=== PATIENT | female | born 1965 | race African-American/Black ===

== ENCOUNTER 2016-11-26 16:00 | Inpatient (IN) ==
[~2016-11-26 16:00] MED LIST: ASPIRIN PO STA; NITROGLYCERIN SL PRN
[2016-11-26] MEDS ORDERED: NITROGLYCERIN TOP ONE (16:02)
--- NOTE | 2016-11-26 16:15 | EKG Report ---
Test Performed on : 11/26/2016 3:54:58 PM Test Reason : CHEST PAIN Blood Pressure : / mmHG Vent. Rate : 082 BPM Atrial Rate : 082 BPM P-R Int : 146 ms QRS Dur : 070 ms QT Int : 366 ms P-R-T Axes : 053 -16 052 degrees QTc Int : 427 ms Normal sinus rhythm. Normal ECG When compared with ECG of 13-APR-2013 14:36, No significant change was found Unconfirmed Result
[2016-11-26] MEDS ORDERED: MORPHINE IV ONE (16:18)
[2016-11-26 16:19] LABS: MANUAL DIFF NEEDED? NO
[2016-11-26 16:22] LABS: BASO% 0.2 % (0.0-0.8); EOS# 0.09 X1000 (0.0-0.7); EOS% 1.8 % (0.0-10.0); HEMATOCRIT 39.1 % (37.0-47.0); LYMPH# 2.17 X1000 (1.2-3.4); LYMPH% 44.1 % (20.5-51.1); MCH 27.1 PG (27-31); MCHC 33.2 g/dL (33-37); MCV 81.6 FL (81-99); MONO# 0.31 X1000 (0.11-0.59); MONO% 6.3 % (1.7-9.3); MPV 10.8 FL (7.4-10.4); NEUT% 47.6 % (42.2-75.2); PLT 284 X1000 (130-400); RBC 4.79 XMIL (4.2-5.4)
--- NOTE | 2016-11-26 16:29 | Diag Imaging Result Doc PS360 ---
EXAM: CHEST-PORTABLE HISTORY: cp TECHNIQUE: AP portable at 1625 COMMENT: There is a granuloma in the left upper lobe. There is no evidence of acute cardiac or pulmonary disease. Compared to the previous examination of 04/13/2013 there has been no significant change in the appearance of the chest. IMPRESSION: Stable chest. Electronically signed by Luis Carlos Mohan 11/26/2016 4:27 PM
[2016-11-26 16:33] LABS: INR 0.96; PTT 28.3 Seconds (22.0-36.0)
[2016-11-26 16:55] LABS: ALBUMIN 3.9 g/dL (3.5-5.0); CALCIUM 9.1 mg/dL (8.8-10.2); MAGNESIUM 1.7 mg/dL (1.5-2.7); TOTAL BILIRUBIN 0.4 mg/dL (0.20-1.00); TOTAL PROTEIN 6.6 g/dL (6.3-8.3)
[2016-11-26] MEDS ORDERED: NS 1,000 ML IV ONE (16:57)
[2016-11-26 17:56] LABS: CK-MB 5.64 ng/mL (0.0-5.0)
--- NOTE | 2016-11-26 18:39 | Diag Imaging Result Doc PS360 ---
EXAM: CT ANGIOGRM/PULMONARY ARTERIES HISTORY: CP with elevated D dimer TECHNIQUE: CT chest with intravenous contrast. Arteriogram protocol with MIP images. Dose reduction technique. COMPARISON: None. FINDINGS: Suboptimal opacification of the pulmonary arteries. No filling defects identified. Normal thoracic aorta. No pleural effusions. Heart is mildly enlarged. There are small mediastinal nodes with several calcified left hilar nodes. No consolidation. No bronchiectasis. There is a calcified granuloma in the left upper lobe. The vasculature is distended. IMPRESSION: 1.No pulmonary emboli 2.Mild cardiomegaly with pulmonary edema 3.There is evidence of a prior granulomatous infection Electronically signed by Emiliano Gillette 11/26/2016 6:36 PM
[2016-11-26 19:24] LABS: CK INDEX 2.9 (0.0-2.5); CK-MB 5.17 ng/mL (0.0-5.0)
[2016-11-26] MEDS ORDERED: LIPITOR PO SCH (22:43)
[2016-11-26] MEDS ORDERED: TYLENOL PO PRN ×2 (22:43)
[2016-11-26] MEDS: LOVENOX SUBQ SCH (22:57)
[2016-11-26] MEDS: NITROGLYCERIN TOP SCH (22:58)
[2016-11-26 23:51] LABS: HEMOGLOBIN A1C 6.4 % (4.8-6.0)
[2016-11-27] MEDS ORDERED: PNEUMOVAX 23 IM ONE (02:06)
[2016-11-27] MEDS: NITROGLYCERIN TOP SCH (05:53)
[2016-11-27] MEDS: HUMALOG SUBQ SCH ×4 (06:00→21:42)
[2016-11-27] MEDS: PRILOSEC PO SCH (06:00)
[2016-11-27 06:13] LABS: AGAP 11; ALBUMIN 3.4 g/dL (3.5-5.0); ALKALINE PHOSPHATASE 190 U/L (32-104); BUN 13 mg/dL (8-22); CALCIUM 8.7 mg/dL (8.8-10.2); CHLORIDE 103 mmol/L (98-107); COSMO 281; POTASSIUM 3.5 mmol/L (3.5-5.1); SODIUM 141 mmol/L (136-145); TCO2 27 mmol/L (25-35); TOTAL BILIRUBIN 1.21 mg/dL (0.20-1.00); TOTAL PROTEIN 6.1 g/dL (6.3-8.3)
[2016-11-27 06:30] LABS: GOT 2874 U/L (10-30); GPT 1208 U/L (10-36)
--- NOTE | 2016-11-27 07:08 | EKG Report ---
Test Performed on : 11/27/2016 06:32:11 AM Test Reason : CP Blood Pressure : / mmHG Vent. Rate : 076 BPM Atrial Rate : 076 BPM P-R Int : 168 ms QRS Dur : 086 ms QT Int : 400 ms P-R-T Axes : 064 -13 063 degrees QTc Int : 450 ms Normal sinus rhythm. Normal ECG When compared with ECG of 26-NOV-2016 15:54, (Unconfirmed) No significant change was found Confirmed by Shirlene LARSEN, Jaden Amor ([id number]) on 11/28/2016 7:50:20 AM
[2016-11-27] MEDS ORDERED: PRINIVIL PO SCH (09:00)
[2016-11-27] MEDS ORDERED: ASPIRIN PO SCH (09:00)
[2016-11-27] MEDS ORDERED: NON-FORMULARY MED (Omeprazole [Prilosec] 40 MG) PO SCH (09:00)
[2016-11-27 10:31] LABS: INR 0.96
[2016-11-27 10:39] LABS: AMYLASE 45 U/L (20-200); LIPASE 37 U/L (13-60)
--- NOTE | 2016-11-27 10:42 | Diag Imaging Result Doc PS360 ---
EXAM: US ABDOMEN-COMPLETE HISTORY: abd pain, chest pain, increased LFT TECHNIQUE: Abdominal ultrasound COMMENT: The visualized portion of the pancreas is within normal limits. The aorta and inferior vena cava are normal in appearance where there are visible. Liver is unremarkable. There is no evidence of biliary dilatation, the common bile duct measuring 4 mm. There is antegrade flow in the portal vein. The gallbladder is clear and nontender. The kidneys are without evidence of hydronephrosis or mass. The spleen is not enlarged. There are no abnormal fluid collections. IMPRESSION: No evidence of acute disease. Electronically signed by Luis Carlos Mohan 11/27/2016 10:40 AM
[2016-11-27 10:52] LABS: ALBUMIN 3.8 g/dL (3.5-5.0); DIRECT BILIRUBIN 1.2 mg/dL (0.00-0.20); TOTAL BILIRUBIN 1.48 mg/dL (0.20-1.00); TOTAL PROTEIN 6.8 g/dL (6.3-8.3)
--- NOTE | 2016-11-27 11:31 | Diag Imaging Result Doc PS360 ---
EXAM: CT ABD/PELVIS W/PO AND IV CON INDICATION: chest pain, abd pain, increased LFTs TECHNIQUE: Dose reduction protocol was used. COMPARISON: None. FINDINGS: The liver, gallbladder, spleen, pancreas, and adrenal glands are unremarkable. The kidneys and urinary bladder appear normal. The uterus is enlarged, heterogeneous, and very nodular. This probably represents uterine leiomyomas. There is a right adnexal mass that measures up to 4.8 x 3.4 cm. This may represent a pedunculated uterine fibroid, but it is difficult to determine if it is attached to the uterus. Follow-up pelvic ultrasound is recommended. It is difficult to distinguish this from the right ovary on the study. There are a few scattered colonic diverticula but there is no evidence of diverticulitis. There is no evidence of bowel obstruction. The GI tract is essentially unremarkable, otherwise. IMPRESSION: 1.Enlarged, nodular, and heterogeneous uterus that probably represents multiple uterine leiomyomas. 2.Right adnexal region mass that may represent a pedunculated uterine leiomyoma but it is indeterminate. A follow-up with pelvic ultrasound is recommended. 3.Otherwise, no definite acute pathology. Electronically signed by Konstantin Dawson 11/27/2016 11:28 AM
[2016-11-27 12:28] LABS: ACETAMINOPHEN 2.9 ug/mL (10-30)
[2016-11-27] MEDS: ZOFRAN IV PRN (16:40)
[2016-11-27] MEDS: ULTRAM PO PRN (18:42)
[2016-11-27] MEDS: LOVENOX SUBQ SCH (21:44)
--- NOTE | 2016-11-28 00:01 | ECHO REPORT ---
ORDER DATE: 11/26/2016 MEASUREMENTS: Left ventricular end-diastolic diameter 4.2, end systolic diameter 2.5, septal thickness 1.2, posterior wall thickness 1.2, aortic root 3.1, left atrium 3.5. SUMMARY: 1. Fair quality study. 2. Aortic valve is trileaflet and opens normally on 2-dimensional images. Mitral, tricuspid, and pulmonic valves are without structural abnormality with trace tricuspid regurgitation. Aortic root is normal size. 3. Normal left ventricular chamber size with mild concentric left hypertrophy is demonstrated. Estimated left ejection fraction appears to be at least 70%. No regional wall motion abnormalities are evident. Left atrium, right atrium, right ventricle normal size with normal right ventricular systolic function. 4. No pericardial effusion. 5. Appearance of inferior vena cava suggests normal central venous pressure. CONCLUSIONS: 1. No significant valvular abnormality. 2. Mild concentric left hypertrophy with estimated left ejection fraction at least 70%. cc: MD Omari Marte MD
[2016-11-28 06:12] LABS: AGAP 9; ALBUMIN 3.7 g/dL (3.5-5.0); ALKALINE PHOSPHATASE 256 U/L (32-104); BUN 7 mg/dL (8-22); CALCIUM 8.9 mg/dL (8.8-10.2); CHLORIDE 104 mmol/L (98-107); COSMO 279; GOT 677 U/L (10-30); MAGNESIUM 1.9 mg/dL (1.5-2.7); POTASSIUM 3.9 mmol/L (3.5-5.1); SODIUM 141 mmol/L (136-145); TCO2 28 mmol/L (25-35); TOTAL BILIRUBIN 0.92 mg/dL (0.20-1.00); TOTAL PROTEIN 6.8 g/dL (6.3-8.3)
[2016-11-28] MEDS: HUMALOG SUBQ SCH ×4 (06:22→20:47)
[2016-11-28 06:26] LABS: GPT 846 U/L (10-36)
[2016-11-28 06:36] LABS: FREE T4 1.02 ng/dL (0.93-1.70)
[2016-11-28] MEDS: PRILOSEC PO SCH (07:33)
[2016-11-28] MEDS: ULTRAM PO PRN ×2 (07:42→20:46)
[2016-11-28] MEDS: ZOFRAN IV PRN (12:12)
[2016-11-28 12:26] LABS: HEPATITIS PROFILE ACUTE SEE COMMENTS
[2016-11-28] MEDS ORDERED: SODIUM CHLORIDE 0.9% INJ PRN (13:29)
[2016-11-28] MEDS ORDERED: PHENERGAN IV PRN (13:29)
[2016-11-28] MEDS: LOVENOX SUBQ SCH (20:11)
[2016-11-29] MEDS: HUMALOG SUBQ SCH ×4 (06:03→21:05)
[2016-11-29] MEDS: PRILOSEC PO SCH (06:04)
--- NOTE | 2016-11-29 09:46 | Diag Imaging Result Doc PS360 ---
HIDA SCAN W/ EJECTION FRACTION - 11/28/2016 INDICATION: vomiting COMPARISON: 11/27/2016 FINDINGS: 3.1 millicuries of Choletec was administered. There is normal uptake and clearance by the liver. There is normal excretion into the gallbladder and small bowel. A fatty meal was given. The gallbladder ejection fraction is 87%. IMPRESSION: Negative exam. An abnormally low ejection fraction (less than 35%) can be present in patients without gallbladder dyskinesis or chronic cholelithiasis to have other medical conditions. These include but are not limited to, patients with diabetic mellitus, irritable bowel syndrome, , gastroenteritis. peptic ulcer disease, and patients receiving morphine or nifedipine. Electronically signed by Farhan Arboleda 11/29/2016 9:44 AM
[2016-11-29] MEDS ORDERED: DIPRIVAN 1% ONE (18:34)
[2016-11-29] MEDS ORDERED: FENTANYL ONE (19:00)
[2016-11-30] MEDS: HUMALOG SUBQ SCH (06:01)
[2016-11-30] MEDS: PRILOSEC PO SCH (06:02)
[2016-11-30 07:35] VITALS: BP 101/73
[2016-11-30] MEDS ORDERED: FLUZONE QUAD 2017-2018 SYRINGE IM ONE (11:03)
== END 2016-11-30 11:38 | disposition home or self-care (01) ==
LOC: ED 16:00 → SUATTDRO 21:35 → EDIPHOLD 21:35 → 4N 23:51
PROVIDERS: ATTEND Emergency Medicine